=== PATIENT | male | born 1970 | race Caucasian/White ===

== ENCOUNTER 2018-01-07 20:42 | Emergency (ER) | payer OTHER ==
[~2018-01-07] VITALS: Ht 170.2 cm; Wt 181.8 kg
[2018-01-07] MEDS ORDERED: LASIX40 M1 PO (21:11)
[2018-01-07] MEDS ORDERED: VITAMIN C500 M7 PO (21:11)
[2018-01-07] MEDS ORDERED: POTASSIUM CHLO10 ME5 PO (21:11)
[2018-01-07] MEDS ORDERED: LOTREL 10 MG-401 CAP PO (21:11)
[2018-01-07] MEDS ORDERED: FISH OIL 1,0001 EAC1 PO (21:12)
[2018-01-07] MEDS ORDERED: FLAX SEED OIL1 EACH PO (21:12)
[2018-01-07] MEDS ORDERED: ASPIRIN E.C. 8181 MG PO (21:12)
[2018-01-07] MEDS ORDERED: VITAMIN E100 UNIT PO (21:12)
[2018-01-07 21:30] LABS: HEMATOCRIT 50.3 % (42.0-52.0); MEAN CELL VOLUME 90 fl (78-100); MEAN CORPUSCULAR HEMOGLOBIN 32 pg (27-31); MEAN CORPUSCULAR HGB CONC 36 g/dL (33-37); MEAN PLATELET VOLUME 10.6 fl (7.4-10.4); PLATELET COUNT 85 K/mm3 (130-400); RED BLOOD COUNT 5.57 M/mm3 (4.20-5.60); RED CELL DISTRIBUTION WIDTH 13.9 % (11.5-14.5); WHITE BLOOD COUNT 10.5 K/mm3 (4.8-10.8)
[2018-01-07 21:41] LABS: CALCIUM 8.9 mg/dL (8.4-10.2); POTASSIUM 4.8 mmol/L (3.6-5.0)
[2018-01-07 21:50] LABS: LYMPHOCYTE 28 % (20-51); MONOCYTE 4 % (3-10); NEUTROPHILS 66 % (42-75)
[2018-01-07] MEDS ORDERED: SEPTRA DS 8001 TAB PO (22:32)
[2018-01-07] MEDS ORDERED: CEPHALEXIN500 M1 PO (22:32)
[2018-01-07 22:43] VITALS: BP 164/112
== END 2018-01-07 22:43 | disposition home or self-care (01) ==
LOC: ED 20:42
PROVIDERS: Family Medicine
DX: L03.116 Cellulitis of left lower limb (principal); I87.8 Other specified disorders of veins; I10 Essential (primary) hypertension; E66.01 Morbid (severe) obesity due to excess calories; R73.03 Prediabetes; Z79.82 Long term (current) use of aspirin; Z79.899 Other long term (current) drug therapy; B35.3 Tinea pedis